=== PATIENT | female | born 1960 | race Caucasian/White ===

== ENCOUNTER 2017-05-08 20:04 | Emergency (ER) | payer OTHER ==
[~2017-05-08] VITALS: Ht 170.2 cm; Wt 81.0 kg
[2017-05-08] MEDS ORDERED: METF500T4 PO (20:20)
[2017-05-08] MEDS ORDERED: BLOOD PRESSURE MED PO (20:20)
[2017-05-08 20:22] LABS: GLUCOSE,POINT OF CARE 230 MG/DL (70-110)
[2017-05-08] MEDS ORDERED: ACETAMINOPHEN/CODEINE 300-30 MG TABLET PO ONE (20:30)
[2017-05-08 21:49] VITALS: BP 129/86
== END 2017-05-08 22:05 | disposition home or self-care (01) ==
LOC: EMS 20:06
DX: S80.01XA Contusion of right knee, initial encounter (principal); E11.9 Type 2 diabetes mellitus without complications; I10 Essential (primary) hypertension; W01.0XXA Fall on same level from slipping, tripping and stumbling without subsequent striking against object, initial encounter; Y93.01 Activity, walking, marching and hiking; Y92.041 Bathroom in boarding-house as the place of occurrence of the external cause; Y99.8 Other external cause status
CPT/HCPCS: 29505; 82962; 99284

== ENCOUNTER 2021-10-12 18:30 | Emergency (ER) | payer MEDICAID, OTHER ==
[~2021-10-12] VITALS: Ht 170.2 cm; Wt 84.1 kg
[~2021-10-12 18:30] MED LIST: BLOOD PRESSURE MED PO; METF-1211 PO
[2021-10-12] MEDS ORDERED: HydrOXYzine PAMOATE 50 MG CAPSULE PO ONE (19:45)
[2021-10-12 22:38] VITALS: BP 145/84
== END 2021-10-12 23:08 | disposition home or self-care (01) ==
LOC: EMS 18:37
DX: F41.9 Anxiety disorder, unspecified (principal); I10 Essential (primary) hypertension; E11.9 Type 2 diabetes mellitus without complications; Z79.84 Long term (current) use of oral hypoglycemic drugs; Z79.899 Other long term (current) drug therapy
CPT/HCPCS: 82962; 99283